=== PATIENT | female | born 1985 | race Caucasian/White ===

== ENCOUNTER → 2021-06-27 13:00 | Outpatient (ROUT) | payer BC, SELFPAY | PROVIDERS: Visit Provider Nurse Practitioner Obstetrics & Gynecology | DX: Z34.90 Encounter for supervision of normal pregnancy, unspecified, unspecified trimester (principal); Z36.85 Encounter for antenatal screening for Streptococcus B; Z3A.36 36 weeks gestation of pregnancy | CPT/HCPCS: 87081 ==

== ENCOUNTER 2021-07-08 13:58 | Inpatient (IN) | payer BC, SELFPAY ==
--- NOTE | 2021-07-08 14:20 | PM.OBHP.1 ---
OB HPI Date/Time Date of admission: 07/08/21 Date Patient Seen: 07/08/21 Time Patient Seen: 14:20 History of Present Condition Chief complaint: LABOR : 1 Para: 0 Estimated Date of Delivery: 07/24/21 Estimated Gestational Age (weeks): 37.5 Narrative: Solange Calix is a 36 year old female, at 37.5 weeks by first trimester U/S here in spontaneous labor with ruptured membranes. Solange noticed a large gush of clear fluid at home at 0430, she was feeling mild contractions and declined to come to hospital until the got stronger. Upon arrival at hospital she had been ashwin strongly for 2.5 hours. Solange arrived with her , Diana, and aviation support equipment repairer, Nishi. This has been remarkable for IUI with donor sperm, otherwise uncomplicated. Transferred to [facility] from [facility] at 32 weeks gestation. GBS negative. Solange has a history of asthma for which she is not currently taking medications, no other relevant medical history. History of Present care: good care Dating criteria: based on 1st trimester US only Ultrasounds: normal 1st trimester US and normal mid trimester US Obstetrical complications: none Medical complications: none Preadmission Labs Blood type: O (+) positive -: Antibody screen: negative, GBS status: negative, HBsAG: negative, HIV: negative and RPR/VDLR: negative -: Rubella: immune HCT: 35.1 HCAB: negative PAP: Normal 1 hr GTT: 133 Evaluation Evaluation Baseline heart rate: 135 Variability: Moderate (11-25) monitor accelerations: Present Monitor Decelerations: Absent Contraction Frequency (minutes): 2 Uterine Contraction Intensity: Strong/Firm Status: Category l Cervical dilation (cm): 6 Cervical effacement (%): 100 station: 0 Meds Home Medications and Allergies Allergies Allergy/AdvReac Type Severity Reaction Status Date / Time No Known Drug Allergies Allergy Verified 07/08/21 16:47 Exam Vital Signs (past 8 hours): BP: 118/91 mmHg, HR: 101 bpm, T: 35.9 Const Other: Appears in active labor, having regular, strong contractions Resp Auscultation: clear to auscultation bilaterally Cardio Rate: regular rate Rhythm: regular rhythm Presentation: vertex Psych Other: Difficulty coping with painful contractions Assessment and Plan Assessment and Plan Assessment and Plan narrative: Solange is a term nullipara in active labor. No indication for GBS prophylaxis, cat 1 EFM strip. Solange is appropriate for intermittent auscultation and laboring in the tub per her request. Expectant management, anticipate vaginal delivery.
[2021-07-08 15:21] LABS: COVID19 - ADMIT (NP swab/PCR) Negative (Negative)
[2021-07-08] MEDS: OXYTOCIN 10 UNIT/ML VIAL IM (16:27)
--- NOTE | 2021-07-08 16:45 | P.PCNOB_ITS ---
Labor & Delivery Delivery date: 07/08/21 Intrapartal Events: None Cervical ripening method: none Induction method: none Delivery monitor: external FHT and external uterine Route of delivery: L&D Laceration Description: None Estimated blood loss (mL): 100 Anesthesia Type: Other (Nitrous oxide) Narrative: Solange initially labored in the tub then progressed quickly and moved to the bed. She began using nitrous oxide for pain management. She reported adequate relief with this. Solange progressed to complete at 1505 and began spontaneously pushing with contractions. Solange multiple positions with coaching and encouragement. She spontaneously delivered a vigorous baby girl at 1625. Nuchal and body cord x1 were present, baby somersaulted through cord for delivery. Baby was placed skin to skin with mom. Apgars were 8/9. The cord was clamped and cut by student nurse co founder and president at 2 minutes. 3 vessel cord noted. Active management of the third stage was implemented with 10 mL of pitocin givin IM in R thighGentle cord traction and single maternal push lead to spontaneous Shultze delivery of an intact placenta. Solange had a fist degree vaginal laceration that was hemostatic and well approximated, no indication for repair. Cord blood was collected and sent to laboratory. EBL was 100. Baby 1: Infant gender: Female Presentation: vertex Position: Left Occiput Anterior Placenta delivery description: Spontaneous Cord Vessel Description: 3 Vessels, Nuchal Cord and Around Body x1 score (1 min): 8 score (5 min): 9 weight: 2.724 kg Plan for aftercare: Routine care
[2021-07-08] MEDS: HYDROCORTISONE 2.5% CREAM 30 GM 1 APPLIC TOP (17:01)
[2021-07-08] MEDS: IBUPROFEN 600 MG TABLET PO ×2 (17:01→22:39)
[2021-07-08 17:48] VITALS: BP 118/91
[2021-07-08] MEDS: CALCIUM CARBONATE 500 MG TAB 1000 MG PO (18:27)
[2021-07-08] MEDS: ACETAMINOPHEN 325 MG TABLET 650 MG PO (20:21)
[2021-07-08] MEDS: DOCUSATE 100 MG CAPSULE PO (20:22)
[2021-07-08 22:39] VITALS: TEMP 37.7
[2021-07-08 22:55] LABS: Add Manual Diff / Slide Review NO; Basophils Absolute Auto 100 /uL (0-100); Basophils Percent Auto 0.4 % (0-2); Eosinophils Absolute Auto 0 /uL (0-450); Hematocrit 33.1 % (36-46); Hemoglobin 10.9 g/dL (12.0-16.0); Lymphocytes Absolute Auto 2000 /uL (1100-4500); Lymphocytes Percent Auto 8.6 % (25-40); Mean Corpuscular HGB Conc 32.8 % (30-36); Mean Corpuscular Hemoglobin 26.4 PG (26-34); Mean Corpuscular Volume 80.4 fL (80-100); Monocytes Absolute Auto 1200 /uL (0-900); Monocytes Percent Auto 5.3 % (3-14); Neutrophils Absolute Auto 19900 /uL (1500-7000); Neutrophils Percent Auto 85.7 % (50-75); Platelet Count 401 X10^3/uL (150-400); Red Blood Cell Count 4.12 X10^6/uL (4.0-5.2); Red Cell Distribution Width 14.3 % (11.6-14.8); White Blood Cell Count 23.3 X10^3/uL (4.5-11.0)
[2021-07-09] MEDS: IBUPROFEN 600 MG TABLET PO ×2 (04:11→10:08)
[2021-07-09] MEDS: ACETAMINOPHEN 325 MG TABLET 650 MG PO ×2 (04:12→10:07)
[2021-07-09] MEDS: DOCUSATE 100 MG CAPSULE PO (08:43)
--- NOTE | 2021-07-09 11:10 | PM.OBDS.1 ---
Discharge Providers Provider Date of admission: 07/08/21 13:58 Discharge Date: 07/09/21 Consults: 07/09/21 16:41 Consult to Technician [employer]aning Routine Comment: Discharge provider: Giselle Bang CNM Summary Hospital Course Date Patient Seen: 07/09/21 Time Patient Seen: 11:10 Diagnoses: o80 Hospital Course: 18 hours s/p NSVB, Solange is recovering well. She had a max temp of 100F overnight that resolved quickly and has not recurred. Solange is voiding, ambulating and breast feeding independently. Tolerating a general diet. Pain is well controlled w/ PO medication. Vaginal bleeding is light without clots. , Diana present and supportive. Peripartum Data Infant Delivery Method: Natural Vaginal Laceration Description: None 1: Gender: Female Disposition of : home Discharge Diagnosis (1) Encounter for full-term uncomplicated delivery: Start Date: 07/08/21 Start Time: 11:13 Status: Acute Status at Discharge Cognitive/behavioral status at discharge: calm Functional status at discharge: independent ambulation Overall status at discharge: patient is progressing back to baseline Time Spent with Patient Time attestation: Total time spent providing and/or coordinating discharge services: Time spent: Less than 30 minutes Objective Labs Result Diagrams: 07/08/21 22:42 Labs: Laboratory Results - last 24 hr 07/08/21 07/08/21 14:15 22:42 WBC 23.3 H RBC 4.12 Hgb 10.9 L Hct 33.1 L MCV 80.4 MCH 26.4 MCHC 32.8 RDW 14.3 Plt Count 401 H Neut % (Auto) 85.7 H Lymph % (Auto) 8.6 L Lawrence % (Auto) 5.3 Eos % (Auto) 0.0 L Baso % (Auto) 0.4 Neut # (Auto) 94567 H Lymph # (Auto) 2000 Lawrence # (Auto) 1200 H Eos # (Auto) 0 Baso # (Auto) 100 SARS-CoV-2 (PCR) Negative Exam Vital Signs (past 8 hours): T 98.4F Temporal, BP 94/63mmHg, HR 65bpm, RR 16/min, Other: Fundus Firm @ u-1, lochia light, no clots, perineum intact Discharge Plan Discharge Plan Patient Disposition: Home Discharge orders & Medications Prescriptions: New acetaminophen 325 mg Tablet 650 mg PO Q6HR PRN (Reason: Pain, Mild (1-3)) 14 Days Qty: 60 RF: 0 ibuprofen 600 mg Tablet 600 mg PO Q6HR PRN (Reason: Pain, Mild (1-3)) 14 Days Qty: 60 RF: 0 No Action No Known Home Medications RF: 0 Follow up/Referrals: Giselle Bang CNM [[employer]] - (Follow-up by Telehealth 07/22/21 @ 1pm Follow-up in office 08/19/21 @ 9am) Diet/Activity/Treatments Diet: Diet as Tolerated Activity: pelvic rest x 6 weeks Skin/Wound/Dressing Care Report to your healthcare provider any signs of infection, such as:: chills, fever, increased pain, unusual drainage and unusual redness Visit Report/Discharge Packet Instructions: Depression
[2021-07-09 12:08] VITALS: BP 94/63; PULSE 65; RESP 16; TEMP 36.9
[2021-07-09] MEDS: MEASLES,MUMPS,RUBELLA VACC/PF 0.5 ML VIAL SUBCUT (13:26)
== END 2021-07-09 13:50 | disposition home or self-care (01) | DRG 807 ==
PROVIDERS: Admitting Provider Nurse Practitioner Obstetrics & Gynecology; Referring Provider Nurse Practitioner Obstetrics & Gynecology; Visit Provider Nurse Practitioner Obstetrics & Gynecology
DX: O69.81X0 Labor and delivery complicated by cord around neck, without compression, not applicable or unspecified (principal); Z37.0 Single live birth; Z3A.37 37 weeks gestation of pregnancy
CPT/HCPCS: 59050; 85025; 87635; C9803; G0379; J2590